=== PATIENT | male | born 1950 | race Caucasian/White ===

== ENCOUNTER 2022-04-07 10:34 | Emergency (ER) | payer MEDICARE, MEDICAID ==
[2022-04-07] MEDS ORDERED: traMADol HCl 50 MG TAB ONE (11:02)
== END 2022-04-07 11:39 | disposition home or self-care (01) ==
LOC: MADERS 10:34
DX: S52.572A Other intraarticular fracture of lower end of left radius, initial encounter for closed fracture (principal); I10 Essential (primary) hypertension; F17.210 Nicotine dependence, cigarettes, uncomplicated; W18.39XA Other fall on same level, initial encounter
CPT/HCPCS: 29125

== ENCOUNTER 2023-04-12 13:11 | Outpatient (CLI) | payer MEDICAID, MEDICARE, OTHER | END 2023-04-12 13:12 | disposition home or self-care (01) | LOC: MADRAD 13:11 | PROVIDERS: ATTEND Nurse Practitioner Family | DX: R09.89 Other specified symptoms and signs involving the circulatory and respiratory systems (principal) | CPT/HCPCS: 71046 ==